=== PATIENT | male | born 1990 | race Caucasian/White ===

== ENCOUNTER 2018-06-18 00:58 | Emergency (ER) | payer SELFPAY ==
[~2018-06-18] VITALS: Ht 193 cm; Wt 108.9 kg
[2018-06-18 01:12] VITALS: BP 121/69
[2018-06-18] MEDS ORDERED: LIDOCAINE 1%-EPI 1:100,000 20 ML VIAL TP ONE (03:30)
[2018-06-18] MEDS ORDERED: ONDANSETRON 4 MG TAB.RAPDIS SL ONE (03:30)
[2018-06-18] MEDS ORDERED: CEFTRIAXONE 1 G VIAL IM ONE (03:30)
[2018-06-18] MEDS ORDERED: DIAZEPAM 10 MG TABLET PO ONE (03:30)
[2018-06-18] MEDS ORDERED: HYDROMORPHONE INJ 0.5 MG/0.5 ML SYRINGE IM ONE (03:30)
[2018-06-18] MEDS ORDERED: HYDROMORPHONE INJ 2 MG/ML DISP.SYRIN ONE (03:43)
[2018-06-18] MEDS ORDERED: LIDOCAINE 1%-EPI 1:100,000 20 ML VIAL ONE (03:44)
[2018-06-18] MEDS ORDERED: DIAZEPAM 10 MG TABLET ONE (03:45)
[2018-06-18] MEDS ORDERED: ONDANSETRON 4 MG TAB.RAPDIS ONE (03:46)
--- NOTE | 2018-06-18 04:00 | NUR ---
Note devantenaty in ED - 06/18/18 at 0415 by DAMIR Patient does not wish to proceed with medical care recommended by Dr. Barone. Patient given information related to possible complications, up to and including , which could occur as a result of leaving the hospital at this time. Patient verbalizes understanding of risks involved due to leaving against medical advice. Patient has left as AMA
--- NOTE | 2018-06-18 04:15 | NUR ---
PT ELOPE FROM ROOM WITH , UNABLE TO MEDICATE PT ORDERED. AWARE
== END 2018-06-18 04:18 | disposition left against medical advice (07) ==
LOC: ER 01:01
DX: K61.1 Rectal abscess (principal); F17.210 Nicotine dependence, cigarettes, uncomplicated; Z90.89 Acquired absence of other organs
CPT/HCPCS: 99283; A4606; Z7610; J1170; J3490; Q0162; Z7502